=== PATIENT | male | born 1980 | race Caucasian/White ===

== ENCOUNTER 2024-11-14 15:52 | Emergency (ER) | payer BC, SELFPAY ==
--- NOTE | 2024-11-14 15:54 | ED.BACK ---
HPI - Back Pain/Injury General Chief Complaint: Back Pain/Injury Stated Complaint: lower back pain Time Seen by Provider: 11/14/24 15:54 Source: patient Mode of arrival: ambulatory Limitations: no limitations History of Present Illness HPI Narrative: Gonzalo is a 44-year-old male patient presenting to the clinic today with complaints of low back pain with left-sided radiculopathy. He reports he got up this morning and when he got up out of bed he felt a sharp pain in his low back with some radiation of pain down his left leg. He reports that the sciatica pain has resolved however he is still having some low back pain. Currently rates as 6 at 10. Took Aleve this morning and that helped alleviate some of the pain. Related Data Allergies Allergy/AdvReac Type Severity Reaction Status Date / Time No Known Allergies Allergy Verified 11/14/24 16:01 Review of Systems Review of Systems: Pertinent positives per HPI. Patient denies any fever, chills, rash, headache, visual changes, dizziness, cough, shortness of breath, chest pain, palpitations, nausea, vomiting, diarrhea, constipation, abdominal pain, or any urinary issues. [facility] Past Medical History Medical History History of cardiac murmur as a child Family History Family History Mother Diabetes mellitus Kidney failure Father Heart failure Sibling Breast cancer Social History Social History Smoking status: Never smoker Alcohol intake: current Alcohol use details: rare maybe twice per year Substance use: never Do You Feel Safe in your Home?: Yes Lack of Transportation: No Lack of Food: Never True Current Housing: I Have Housing Concerned About Future Housing: No Difficulty Paying Gas/Electric Bills: No Difficulty Paying for Meds: No Currently Unemployed: No Education: High School Diploma/GED Difficulty w/ Childcare or Family Care: No Occupation/Education: occupation Additional occupation/education comments: [employer] Comments At the time of my signature, I reviewed and agree with the nursing past medical, surgical, social, and family history. There is no relevant family history pertinent to the patient complaint. Exam Narrative: General: Well-developed, well nourished, in no apparent distress Head: Normocephalic, atraumatic. Cardio: Regular rate and rhythm, s1 and s2 normal, no murmur appreciated. Resp: Clear to auscultation bilaterally, no rhonchi, rales, wheezing or rubs. Musculoskeletal: No deformity, tender to palpation over the lower lumbar spine/paraspinous musculature, grossly normal range of motion, muscle strength strong and equal in BLE. SLT negative, patellar reflexes 2/4 bilaterally, negative foot drop, normal gait and station Course Course Emergency Course: Portions of this record may have been created with voice recognition software. Level of Care: Express Care Visit Vital Signs Vital signs: Vital Signs Temperature 36.4 C 11/14/24 16:05 Pulse Rate 112 H 11/14/24 16:05 Respiratory Rate 16 11/14/24 16:05 Blood Pressure 197/112 H 11/14/24 16:05 Pulse Oximetry 99 11/14/24 16:05 Oxygen Delivery Room Air 11/14/24 16:05 Temperature 36.4 C 11/14/24 16:05 Pulse Rate 112 H 11/14/24 16:05 Respiratory Rate 16 11/14/24 16:05 Blood Pressure 197/112 H 11/14/24 16:05 Pulse Oximetry 99 11/14/24 16:05 Oxygen Delivery Room Air 11/14/24 16:05 Vital signs reviewed MDM - Back Pain/Injury MDM Narrative Medical decision making narrative: At the time of visit patient is resting comfortably on the exam table. Patient appears to be nontoxic. Plan: I suspect patient has a low back pain with left-sided sciatica. Prescription for naproxen and cyclobenzaprine was sent to the pharmacy. Supportive measures were discussed with the patient and they voiced understanding discharge instructions and agrees to treatment plan. Return precautions reviewed Differential Diagnosis Differential diagnosis: Likely lumbar radiculopathy, sciatica, strain of lumbar region and other (Muscle spasms) Discharge Plan Discharge Clinical Impression: Acute low back pain with sciatica Qualifiers: Back pain laterality: midline Sciatica laterality: sciatica of left side Qualified Code(s): M54.42 - Lumbago with sciatica, left side Patient Disposition: Home, Self-Care Condition: Stable Instructions: Antibiotic Form, Sciatica (ED), Acute Low Back Pain (ED) Additional Instructions: Take any prescription medication only as prescribed-naproxen and cyclobenzaprine Be mindful of sedation precautions given to you if taking a muscle relaxer. May use heat or ice to the affected area Consider massage or chiropractor adjustment if this was discussed with provider May use blue emu, lidocaine patches, or asper cream to affected area- do not apply heat or ice directly over cream- can cause burn. Complete appropriate back stretching exercises. Follow up with your PCP in 3-5 days if symptom persist. You have an elevated blood pressure in the clinic today and I recommend follow-up with primary care physician to have this reevaluated within the next week if symptoms persist. [place] [employer] guidelines state that normal blood pressure is 120/80 or less. Anything over 120/80 is considered elevated and should be monitored. You may need to decrease you salt intake and eat a heart healthy diet to help lower you blood pressure, other treatments would include decreasing stress, weight loss, stop caffeine, and quit smoking. Your primary care provider can determine whether you need to start antihypertensive medications. Untreated high blood pressure can cause dizziness, headaches, visual changes, blindness, kidney failure, stroke, heart attack, and male impotence. Patient Language: Estonian Prescriptions: New naproxen 500 mg tablet 500 mg PO BID PRN (Reason: pain) 7 Days Qty: 14 0RF cyclobenzaprine 10 mg tablet 10 mg PO Q8H PRN (Reason: muscle spasm) 7 Days Qty: 21 0RF No Action lisinopril 10 mg tablet 10 mg PO DAILY Qty: 30 0RF Follow-up/Referrals: Elissa Lemus APRN [Primary Care Provider] - Stand Alone Forms: Work/School Release IP Time of Disposition: 16:09 Quality NIHSS Nursing Documentation ED NIHSS nursing documentation: reviewed/agree
[2024-11-14 16:05] VITALS: BP 197/112; PULSE 112; RESP 16; TEMP 36.4; O2SAT 99
== END 2024-11-14 16:15 | disposition home or self-care (01) ==
PROVIDERS: Emergency Provider Nurse Practitioner Family; PCP Nurse Practitioner Family
DX: M54.42 Lumbago with sciatica, left side (principal)
CPT/HCPCS: 99213; G0463